=== PATIENT | male | born 1990 | race Caucasian/White ===

== ENCOUNTER 2017-02-05 05:42 | Emergency (ER) | payer SELFPAY ==
[2017-02-05] MEDS ORDERED: ONDANSETRON ODT PREPAC 4 MG TAB.RAPDIS PO ONE (06:10)
[2017-02-05] MEDS ORDERED: KETOROLAC TROMETHAMINE 30 MG/ML VIAL ONE (06:10)
[2017-02-05] MEDS ORDERED: PENICILLIN VK PREPAC 500 MG TABLET PO ONE (06:17)
--- NOTE | 2017-02-05 06:50 | ER NURSING DOCUMENTATION ---
Nurse's Notes [facility] Name:Jamie Bird Age:26 yrs Sex:Male :1990 Arrival Date:02/05/2017 Time:05:42 Bed2 Private MD:Physician, No Diagnosis:Dental pain Presentation: 02/05 05:53 Presenting complaint: Patient states: pain in right upper jaw since last night, sj unrelieved by tylenol. Has not had wisdom teeth extracted. Transition of care: Home. 05:53 Acuity: LIONEL 3 sj 05:53 Method Of Arrival: Private Vehicle Triage Assessment: 06:19 General: Appears distressed, Behavior is anxious, cooperative, pleasant. Pain: sj Complains of pain in face and upper right third molar Pain currently is 6 out of 10 on a pain scale. EENT: Reports pain mouth pain. Neuro: Level of Consciousness is awake, alert, Oriented to person, place, time, event. Cardiovascular: Capillary refill < 3 seconds. Respiratory: Respiratory effort is even, unlabored, Respiratory pattern is regular. Historical: - Allergies: No known drug Allergies; - Home Meds: 1. None - PMHx: Asthma; HYPOGLYCEMIA; - PSHx: None; - Tetanus: < 10 years. - Immunization history: Pneumococcal vaccine status is unknown. - Ebola Screening: : Patient negative for fever greater than or equal to 101.5 degrees Fahrenheit, and additional compatible Ebola Virus Disease symptoms. Patient denies exposure to infectious person. Patient denies travel to an Ebola-affected area in the 21 days before illness onset. No symptoms or risks identified at this time. . - Social history: Smoking status: Patient uses tobacco products, current every day smoker. Patient uses alcohol but reports only rare drinking. marijuana. Screenin:38 Infectious Disease Risk None. Abuse screen: Denies threats or abuse. Denies injuries sj from another. Nutritional screening: No deficits noted. Assessment: 06:38 See Triage Assessment done by same RN. Vital Signs: 06:37 BP 147 / 95; Pulse 75; Resp 22; Temp 98.5(TE); Pulse Ox 97% on R/A; Weight 97.52 kg; sj Height 6 ft. 2 in. (187.96 cm); Pain 6/10; 06:37 Body Mass Index 27.60 (97.52 kg, 187.96 cm) ED Course: 05:43 Patient arrived in ED. em2 05:44 Physician, No is Private Physician. em2 05:47 Murtaza Collins MD is Attending Physician. tl1 05:53 Malissa Contreras is Primary Nurse. sj 05:57 Logan Sams DDS is Referral Physician. tl1 06:17 Triage completed. sj 06:38 Notified ED Physician of patient's arrival and chief complaint. Dr. Collins notified. sj 06:39 Valuables Remains with patient Patient has correct armband on for positive sj identification. Bed in low position. 06:58 Primary Nurse role handed off by Malissa Contreras sj 06:58 Malissa Contreras is Primary Nurse. Administered Medications: 06:00 Drug: Toradol 30 mg; Route: IM; Site: left gluteus; sj 06:42 Follow up: Response: Pain is decreased sj 06:01 Drug: Dilaudid 2 mg; Route: IM; Site: right gluteus; sj 06:42 Follow up: Response: Pain is decreased sj 06:05 Drug: Penicillin VK 1 tablet; Route: PO; sj 06:43 Follow up: Response: Pharmacy closed - take home med pack sj 06:10 Drug: Zofran 1 tablet; Route: PO; sj 06:59 Follow up: Response: Pharmacy closed - take home med pack sj 06:58 CANCELLED (Other Intervention Used): Zofran 4 mg PO once sj Outcome: 06:00 Discharge ordered by . tl1 06:39 Discharged to home ambulatory, with friend. sj 06:39 Condition: improved 06:39 Instructed on discharge instructions, follow up and referral plans. medication usage, Demonstrated understanding of instructions, medications, Prescriptions given X 3. 06:49 Patient left the ED. sj 06:59 Patient left the ED. 02/06 09:06 Discharge F/U Call: Unable to reach: no answer st Signatures: Michelle Cook, RN RN st [facility] em2 Murtaza Collins MD MD tl1 Malissa Contreras
--- NOTE | 2017-02-05 06:50 | ER PHYSICIAN DOCUMENTATION ---
Physician Documentation [facility] Name:Jamie Bird Age:26 yrs Sex:Male :1990 Arrival Date:02/05/2017 Time:05:42 Bed2 Private MD:Physician, No ED Murtaza Parkinson Disposition: 02/05 06:06 Chart complete. tl1 Disposition: 02/05/17 06:00 Discharged to Home/Self Care. Impression: Dental pain. - Condition is Good. - Discharge Instructions: TOOTH PAIN - DENTAL PAIN. - Prescriptions for penicillin V potassium 500 mg Oral tablet - take 1 tablet by ORAL route 4 times per day for 10 days; 40 tablet. [place] 7.5- 325 mg Oral - take 1 tablet by ORAL route every 6 hours As needed; 12 tablet. Zofran 4 mg Oral Tablet - take 1-2 tablet by ORAL route every 4-6 hours As needed; 10 tablet. - Medical Reconciliation form form. - Follow up: Logan Sams DDS; When: 2 - 3 days; Reason: Recheck today's complaints, Continuance of care. - Problem is new. - Symptoms have improved. HPI: 05:50 This 26 yrs old Male presents to ER with complaints of Mouth Problem. tl1 05:50 The patient presents with pain, that is acute. The problem is located in the upper tl1 right third molar. Onset: The symptom(s)/episode began/occurred gradually, last night, and became worse. Modifying factors: The symptoms are alleviated by over the counter medications, Tylenol, the symptoms are aggravated by chewing. Associated signs and symptoms: Pertinent negatives: chills, fever, swelling. Severity of symptoms: At their worst the symptoms were moderate, in the emergency department the symptoms are unchanged. The patient has experienced similar episodes in the past, a few times. Historical: - Allergies: No known drug Allergies; - Home Meds: 1. None - PMHx: Asthma; HYPOGLYCEMIA; - PSHx: None; - Tetanus: < 10 years. - Immunization history: Pneumococcal vaccine status is unknown. - Ebola Screening: : Patient negative for fever greater than or equal to 101.5 degrees Fahrenheit, and additional compatible Ebola Virus Disease symptoms. Patient denies exposure to infectious person. Patient denies travel to an Ebola-affected area in the 21 days before illness onset. No symptoms or risks identified at this time. . - Social history: Smoking status: Patient uses tobacco products, current every day smoker. Patient uses alcohol but reports only rare drinking. marijuana. ROS: 06:03 Constitutional: Positive for malaise, Negative for chills, fever. tl1 06:03 ENT: Positive for dental pain, Negative for difficulty swallowing, difficulty handling secretions, hoarseness. 06:03 ENT: Negative for nasal discharge, sinus congestion, sinus pain, sore throat. 06:03 Neck: Negative for stiffness, tenderness. 06:03 Cardiovascular: Negative for 06:03 Respiratory: Negative for shortness of breath. 06:03 Abdomen/GI: Negative for nausea, vomiting. Exam: 06:04 Constitutional: This is a well developed, well nourished patient who is awake, alert, tl1 and in no acute distress. 06:04 Head/Face: Normocephalic, atraumatic. tl1 06:04 ENT: Mouth: is normal, Dental exam: no acute changes, pain, that is moderate, specifically in the upper right third molar (#1). 06:04 Neck: External neck: is normal, Lymph nodes: no appreciated lymphadenopathy. 06:04 Cardiovascular: Rate: normal. 06:04 Respiratory: the patient does not display signs of respiratory distress, Respirations: normal. Vital Signs: 06:37 BP 147 / 95; Pulse 75; Resp 22; Temp 98.5(TE); Pulse Ox 97% on R/A; Weight 97.52 kg; sj Height 6 ft. 2 in. (187.96 cm); Pain 6/10; 06:37 Body Mass Index 27.60 (97.52 kg, 187.96 cm) sj MDM: 05:47 Patient medically screened. tl1 06:06 Differential diagnosis: dental caries, dental abscess, impacted wisdom tooth. Data tl1 reviewed: vital signs, nurses notes, and as a result, I will discharge patient. Response to treatment: the patient's symptoms have markedly improved after treatment, and as a result, I will discharge patient. Special discussion: Based on the history and exam findings, there is no indication for further emergent testing or inpatient evaluation. I discussed with the patient/guardian the need to see a dentist for further evaluation of the symptoms. Dispensed Medications: 06:00 Drug: Toradol 30 mg; Route: IM; Site: left gluteus; sj 06:42 Follow up: Response: Pain is decreased sj 06:01 Drug: Dilaudid 2 mg; Route: IM; Site: right gluteus; sj 06:42 Follow up: Response: Pain is decreased sj 06:05 Drug: Penicillin VK 1 tablet; Route: PO; sj 06:43 Follow up: Response: Pharmacy closed - take home med pack sj 06:10 Drug: Zofran 1 tablet; Route: PO; sj 06:59 Follow up: Response: Pharmacy closed - take home med pack sj 06:58 CANCELLED (Other Intervention Used): Zofran 4 mg PO once sj Signatures: Murtaza Collins MD MD tl1 Malissa Contreras
== END 2017-02-05 07:00 | disposition home or self-care (01) ==
LOC: ER 05:42
DX: K08.89 Other specified disorders of teeth and supporting structures (principal); R53.81 Other malaise; F17.210 Nicotine dependence, cigarettes, uncomplicated
CPT/HCPCS: 96372; 99283; J1170; J1885

== ENCOUNTER 2017-02-12 22:10 | Emergency (ER) | payer SELFPAY ==
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
[2017-02-12] MEDS ORDERED: ALBUTEROL HFA 1 INH INHALER INHALATION ONE (22:40)
== END 2017-02-12 22:34 | disposition home or self-care (01) ==
LOC: ER 22:10
DX: Z04.1 Encounter for examination and observation following transport accident (principal); V48.5XXA Car driver injured in noncollision transport accident in traffic accident, initial encounter; Y92.414 Local residential or business street as the place of occurrence of the external cause; Z76.0 Encounter for issue of repeat prescription; J45.909 Unspecified asthma, uncomplicated
CPT/HCPCS: 94640; 99284; J7611